=== PATIENT | female | born 1960 | race African-American/Black ===

== ENCOUNTER 2020-09-04 13:52 | Outpatient (CLI) | payer MEDICARE ==
[~2020-09-04] VITALS: Ht 149.9 cm; Wt 64.4 kg
[2020-09-05 14:17] VITALS: BP 143/101
--- NOTE | 2020-09-05 16:15 | Consultation ---
DATE OF CONSULTATION: 09/04/2020 GASTROENTEROLOGY CONSULTATION CONSULTING PHYSICIAN: Brian Ivan MD. CHIEF COMPLAINT: Pancreatic cancer, weight loss. HISTORY OF PRESENT ILLNESS: This is a 59-year-old female diagnosed with pancreatic cancer in 2015, status post surgery, was doing well, but recently started losing weight and she was referred for endoscopy and colonoscopy. PAST MEDICAL HISTORY: Pancreatic cancer. PAST SURGICAL HISTORY: Whipple surgery. MEDICATIONS: Please see medication reconciliation list. FAMILY HISTORY: No family history of GI malignancies. SOCIAL HISTORY: The patient denies any tobacco, alcohol, or drug use. ALLERGIES: No known drug allergies. PHYSICAL EXAMINATION: VITAL SIGNS: Temperature 97.2, blood pressure , pulse 87, respirations 20. Height is 4 feet 11 inches, weight is 142. HEENT: Normocephalic and atraumatic. Sclerae are anicteric. NECK: Supple. No evidence of obvious lymphadenopathy. CARDIOVASCULAR: Regular rate and rhythm. Plus S1, S2. LUNGS: Clear to auscultation bilaterally. ABDOMEN: Positive bowel sounds. Soft and nontender. There is a scar from prior abdominal surgeries. No rebound. No guarding. No peritoneal sign. EXTREMITIES: No cyanosis, no clubbing, no edema. ASSESSMENT AND PLAN: A 59-year-old female with history of pancreatic cancer, now with weight loss. Apparently, the patient never had a colonoscopy done. The patient will need a colonoscopy at least for screening and also need endoscopy given weight loss. If the above is negative, the patient will need a CT scan of the abdomen and pelvis with contrast for evaluation of recurrent pancreatic malignancy. Brian Ivan M.D. DR: HAWA JOB#: [id number] CC:
[2020-09-08] MEDS ORDERED: ENOXAPARIN100 MG/1 M SUBQ (14:26)
[2020-09-08] MEDS ORDERED: CATAPRES0.1 MG ORAL (14:26)
[2020-09-08] MEDS ORDERED: VITAMIN D3125 MCG PO (14:26)
[2020-09-08] MEDS ORDERED: PROLIA60 MG/1 ML SUBQ (14:26)
[2020-09-08] MEDS ORDERED: CARVEDILOL25 MG ORAL (14:26)
[2020-09-08] MEDS ORDERED: HYDROCHLOROTHIA25 MG ORAL (14:26)
[2020-09-08] MEDS ORDERED: CREON DR 24,001 EACH PO (14:26)
[2020-09-08] MEDS ORDERED: CELEBREX200 MG ORAL (14:26)
[2020-09-08] MEDS ORDERED: ADALAT10 MG ORAL (14:26)
[2020-09-08] MEDS ORDERED: WARFARIN SODIUM5 MG ORAL (14:26)
[2020-09-08] MEDS ORDERED: MIRALAX17 G2 ORAL (14:26)
== END 2020-09-04 15:52 | disposition home or self-care (01) ==
LOC: PAN 13:52
DX: R63.4 Abnormal weight loss (principal); C25.9 Malignant neoplasm of pancreas, unspecified
CPT/HCPCS: G0463